=== PATIENT | female | born 1980 | race Two or more races ===

== ENCOUNTER 2020-08-17 19:48 | Emergency (ER) | payer SELFPAY ==
[~2020-08-17] VITALS: Ht 154.9 cm; Wt 83.9 kg
[2020-08-17 19:50] VITALS: BP 137/74
== END 2020-08-17 23:02 | disposition home or self-care (01) ==
LOC: ER 19:54
DX: S16.1XXA Strain of muscle, fascia and tendon at neck level, initial encounter (principal); S39.012A Strain of muscle, fascia and tendon of lower back, initial encounter; S00.83XA Contusion of other part of head, initial encounter; S20.212A Contusion of left front wall of thorax, initial encounter; V43.52XA Car driver injured in collision with other type car in traffic accident, initial encounter; Y93.89 Activity, other specified; Y92.410 Unspecified street and highway as the place of occurrence of the external cause; Y99.8 Other external cause status
CPT/HCPCS: 81025